=== PATIENT | male | born 1965 | race African-American/Black ===

== ENCOUNTER 2021-09-21 11:48 | Outpatient (CLI) | payer MEDICARE | END 2021-09-21 11:49 | disposition home or self-care (01) | LOC: CSHULT 11:48 | PROVIDERS: ATTEND Family Medicine | DX: N18.32 Chronic kidney disease, stage 3b (principal); R93.422 Abnormal radiologic findings on diagnostic imaging of left kidney; R93.421 Abnormal radiologic findings on diagnostic imaging of right kidney; R39.198 Other difficulties with micturition | CPT/HCPCS: 76770; 76856 ==

== ENCOUNTER 2024-11-08 13:31 | Outpatient (CLI) | payer MEDICARE ==
[2024-11-08] MEDS ORDERED: Magnevist 469MG/ML 20 ML VIAL ONE (13:51)
== END 2024-11-08 13:32 | disposition home or self-care (01) ==
LOC: CSHMRI 13:31
PROVIDERS: ATTEND Urology
DX: C61 Malignant neoplasm of prostate (principal); R59.0 Localized enlarged lymph nodes
CPT/HCPCS: 72197